=== PATIENT | female | born 1935 | race Caucasian/White ===

== ENCOUNTER 2017-07-24 15:59 | Emergency (ER) | payer MEDICARE, OTHER, SELFPAY ==
[2017-07-24 16:07] VITALS: BP 116/77; PULSE 85; RESP 19; TEMP 36.8; O2SAT 94; BMI 16.4
--- NOTE | 2017-07-24 16:36 | PC.NURSE ---
pt in room screaming im in pain somebody help me. Dr Tolentino at bedside assessing. 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 Reports that she had full treatment and denies having follow up scans since surgery. Crying out in pain all over melissa in lateral RUQ. Crying that Dilaudid no longer works. reports that Dr Adler has stopped refilling her pain medication. Pt was rec'ing home care by [facility] which has since stopped due to insurance and Medicare issues.
[2017-07-24 16:51] VITALS: BP 139/104; PULSE 71; RESP 16; O2SAT 100
[2017-07-24] MEDS: OXYCODONE/ACETAMINOPHEN 5/325 TABLET 2 TAB PO (17:02)
--- NOTE | 2017-07-24 17:07 | PC.NURSE ---
Pt's in room and frequently out in schuster being aggressive towards staff regarding 's pain. I advised pt's that I am scanning meds and will bringing pain medication into room. Dr Tolentino at bedside again to speak to both pt and . Pt's threatening to take pt home and never come back to [facility]. Advised by Dr. Tolentino that he is more than welcome to take her home and welcome to return if necessary. Pt's agreed to allow pt to have KUB. Pt's waiting out in car. Pt seems more calm w/o in room and has since stopped screaming help me and im in pain since he left department. Will continue to monitor pt and her pain level.
[2017-07-24 17:13] LABS: Add Manual Diff / Slide Review NO; Basophils Percent Auto 0.2 % (0-2); Hematocrit 38.3 % (36-46); Lymphocytes Percent Auto 3.4 % (25-40); Mean Corpuscular Hemoglobin 31.5 PG (26-34); Mean Corpuscular Volume 92.7 fL (80-100); Monocytes Percent Auto 4.9 % (3-14); Neutrophils Absolute Auto 9600 /uL (3000-5900); Neutrophils Percent Auto 91.5 % (50-75); Platelet Count 334 X10^3/uL (150-400); Red Blood Cell Count 4.14 X10^6/uL (4.0-5.2); Red Cell Distribution Width 16.7 % (11.6-14.8); White Blood Cell Count 10.5 X10^3/uL (4.5-11.0)
--- NOTE | 2017-07-24 17:15 | PC.NURSE ---
pt now refusing care, refusing xr and blood work. wants to go home. Dr Tolentino in room to discuss risks with leaving AMA. pt reports i want to go home. AMA paperwork filled out and pt assisted into WC
[2017-07-24 17:20] LABS: Calcium 9.7 mg/dL (8.4-10.2); Estimated Glomerular Filt Rate > 60.0 mL/min (>60); Glucose 101 mg/dL (80-110); HEMOLYSIS 20 (0-50); Sodium 136 mmol/L (137-145)
[2017-07-24 17:25] LABS: Potassium 2.7 mmol/L (3.4-5.1)
--- NOTE | 2017-07-24 17:25 | ED.WEAKNESS ---
HPI - Weakness General Chief complaint: Weakness Stated complaint: PAIN History of Present Illness HPI Narrative: HPI 81-year-old female with chronic pain 2/2 bilateral sacral cody insufficiency fractures presents with a family member requesting pain medication. Patient reports that she is been prescribed fentanyl patches and PO hydromorphone as well as alprazolam for anxiety. Patient has run out of all of her medications approximately one week ago. Patient is unclear when she was last prescribed medications, believed that she was going to see her primary care physician today and presented for appointment, found out that her appointment is on 07/31/17 and that her physician would not refill her medications. Patient is unclear why she ran out of her medications prior to her next PCP visit. 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 Patient continues to have, and take, her warfarin, lisinopril, carvedilol, and gabapentin. Patient notes decreased oral intake. Patient continues to take PO and passed flatus and stool from her ostomy. M/S/F/SocHx notable for: please see HPI; remainder reviewed with patient and in chart. ROS: Negative constitutional, eye, cardiovascular, pulmonary, GI, , MSK, skin, neurologic, psychiatric, endocrine unless noted in the HPI. Exam Gen: pleasant, non-toxic, appears to be in mild discomfort/anxious, not in extremis, nontoxic-appearing, malnourished appearing. HEENT: NC, AT, PEERL, EOMI. Resp: Clear to auscultation bilaterally, normal work of breathing, no accessory muscle usage. Card: Regular rate and rhythm with no murmurs, rubs, or gallops, extremities warm and well perfused. GI: Non-tender to palpation throughout all quadrants, no focal tenderness at McBurney's point, negative Reid's sign, non-distended, no rebound or guarding. Ostomy and left lower quadrant without surrounding erythema, warmth, fluctuance, crepitus, ostomy bag with brown stool. : No suprapubic tenderness to palpation. MSK: No visible deformities, strength and tone without visually appreciable deficit. Skin: Normal color with no visible lesions. Neuro: AO x 3, no facial asymmetry, vision and hearing WNL. Psych: Mood and affect appropriate. MDM Previous chart, nursing note, labs, imaging, and vitals reviewed. A/P: 81-year-old female with chronic pain 2/2 bilateral sacral cody insufficiency fractures presents with a family member requesting pain medication. Patients outside medical records obtained and reviewed, [facility] database records reviewed, notable for an alprazolam prescription for which should have remaining doses, hydromorphone prescription on 06/17/17 with 25 days of medication, and no recent fentanyl prescriptions. Patient was given 10 mg oxycodone while records were being obtained. The patient was offered an examination to evaluate for causes of decreased oral intake. After medication the patient declined further evaluation. The patient was alert, oriented, had clear insight, and on 2 to 3 occasions both by nursing and by myself the risks and benefits were reviewed with the patient of remaining for further care versus discharge. The patient made an informed decision for discharge without further evaluation. Given the patient's medical records which are generally consistent with today's presentation, her vitals are within acceptable limits, and her benign abdominal exam as well as overall clinical appearance there do not appear to be any discernible emergent medical processes at the present time. The patient was discharged with a hydromorphone 2 mg b.i.d. ??3 day prescription instructions to follow up immediately with her PCP. Impression: pain (please reference below for remainder of encounter information) Related Data Home Medications Medication Instructions Recorded Confirmed alprazolam 0.25 mg PO QDAY PRN #0 10/25/05 07/24/17 carvedilol [Coreg] 12.5 mg PO BID #0 05/15/16 07/24/17 lisinopril 40 mg PO QDAY #0 03/01/17 05/10/18 pilocarpine HCl [Isopto Carpine] 1 ml OP TID #0 05/15/16 07/24/17 fentanyl 1 patch TRANSDERMAL Q72H 07/24/17 07/24/17 gabapentin [Neurontin] 300 mg PO QHS 07/24/17 07/24/17 hydrochlorothiazide 50 mg PO QDAY 07/24/17 07/24/17 hydromorphone [Dilaudid] 2 mg PO BID 07/24/17 07/24/17 warfarin 4 mg PO QDAY 07/24/17 07/24/17 Previous Rx's Medication Instructions Recorded docusate sodium 100 mg PO BID #60 cap 03/31/17 Allergies Allergy/AdvReac Type Severity Reaction Status Date / Time Sulfa (Sulfonamide Allergy Severe SEVERE Unverified 06/25/17 12:02 Antibiotics) HIVES [SULFA (SULFONAMIDE ANTIBIOTICS)] Penicillins [PENICILLINS] AdvReac Intermediate VAGINAL Unverified 06/25/17 12:02 DISCHARGE MDM - Weakness Lab Data Result diagrams: 07/24/17 16:32 07/24/17 16:32 Lab Results 07/24/17 Range/Units 16:32 WBC 10.5 (4.5-11.0) X10^3/uL RBC 4.14 (4.0-5.2) X10^6/uL Hgb 13.0 (12.0-16.0) g/dL Hct 38.3 (36-46) % MCV 92.7 (80-100) fL MCH 31.5 (26-34) PG MCHC 34.0 (30-36) % RDW 16.7 H (11.6-14.8) % Plt Count 334 (150-400) X10^3/uL Neut % (Auto) 91.5 H (50-75) % Lymph % (Auto) 3.4 L (25-40) % [place] % (Auto) 4.9 (3-14) % Eos % (Auto) 0.0 L (2-4) % Baso % (Auto) 0.2 (0-2) % Neut # (Auto) 9600 H (4764-1552) /uL Course Orders Ordered: ED Orders 07/24/17 16:32 Basic Metabolic Panel Stat Complete Blood Count AUTO DIFF Stat 07/24/17 17:05 XR KUB Stat Discontinued Medications Oxycodone HCl (Percolone) 10 mg PO NOW ONE Stop: 07/24/17 16:55 Last Admin: 07/24/17 17:00 Dose: Oxycodone/Acetaminophen (Percocet 5/325) 2 tab PO NOW ONE Stop: 07/24/17 17:02 Last Admin: 07/24/17 17:02 Dose: 2 tab Last Vital Signs Temp 98.2 F 07/24/17 16:07 Pulse 71 07/24/17 16:51 Resp 16 07/24/17 16:51 BP 139/104 H 07/24/17 16:51 Pulse Ox 100 07/24/17 16:51 Discharge Plan Departure Prescriptions: No Action alprazolam 0.25 MG tablet 0.25 mg PO QDAY PRN (Reason: Anxiety) Qty: 0 RF: 0 carvedilol [Coreg] 12.5 MG tablet 12.5 mg PO BID Qty: 0 RF: 0 lisinopril 40 MG tablet 40 mg PO QDAY Qty: 0 RF: 0 pilocarpine HCl [Isopto Carpine] 15 ML drops 1 ml OP TID Qty: 0 RF: 0 docusate sodium 100 MG capsule 100 mg PO BID Qty: 60 RF: 0 hydrochlorothiazide 50 mg Tablet 50 mg PO QDAY RF: 0 warfarin 4 mg Tablet 4 mg PO QDAY RF: 0 hydromorphone [Dilaudid] 2 MG tablet 2 mg PO BID RF: 0 gabapentin [Neurontin] 300 MG capsule 300 mg PO QHS RF: 0 fentanyl 25 mcg/hr Patch 72 Hour 1 patch TRANSDERMAL Q72H RF: 0
--- NOTE | 2017-07-24 17:30 | PC.NURSE ---
Assisted pt in WC out to car with GIL Liu. Advised that pt signed an Against Medical Advice form and refused lab work and a KUB xray, responded yea okay where's the pain med script Advised that no script will be provided, pt rec'd 2 percocet while in ED and she spoke with Dr Tolentino and decided she wants to go home- stated you cant do anything for me here and i want to go home Pt's got angry and aggressive with me in the parking lot. I told pt we are here to help his and he does not need to be rude and treat staff with disrespect. Pt got into my personal space and stated get out my face and leave us alone Pt entered car with assist.
[2017-07-24 17:37] VITALS: BP 118/60; PULSE 78; RESP 16; O2SAT 98
--- NOTE | 2017-07-24 17:50 | PC.NURSE ---
Per Dr Tolentino, 3 days worth of hydromorphone eScribed to [facility]ji in [place] to manage pt's pain until she can see Dr Adler on 07/28.
== END 2017-07-24 17:42 | disposition left against medical advice (07) ==
PROVIDERS: Emergency Provider Emergency Medicine; Family Provider Internal Medicine; PCP Internal Medicine; Referring Provider Internal Medicine
DX: R52 Pain, unspecified (principal)
CPT/HCPCS: 36591; 80048; 85025; 99282; 99283